=== PATIENT | male | born 1995 | race Caucasian/White ===

== ENCOUNTER 2017-02-07 19:29 | Emergency (ER) | payer SELFPAY ==
[~2017-02-07] VITALS: Ht 185.4 cm; Wt 77.3 kg
[2017-02-07 19:31] VITALS: BP 123/79; PULSE 122; TEMP 97.9
[2017-02-07] MEDS ORDERED: CLARITIN 1010 MG/TAB PO (19:34)
[2017-02-07] MEDS ORDERED: AMOXICILLIN 8751 TAB PO (20:03)
[2017-02-07] MEDS ORDERED: MOTRIN 800800 MG/TAB PO (20:06)
== END 2017-02-07 20:20 | disposition home or self-care (01) ==
LOC: COL.ER 19:29 → EDBD 19:41 → COL.ER 19:41
DX: M53.3 Sacrococcygeal disorders, not elsewhere classified (principal)